=== PATIENT | male | born 1990 | race Caucasian/White ===

== ENCOUNTER 2022-09-28 21:53 | Emergency (ER) | payer OTHER ==
[2022-09-28 22:16] VITALS: BP 125/91; PULSE 85
[2022-09-28] MEDS ORDERED: Azithromycin 250 MG Tab PO ONE (22:36)
[2022-09-28] MEDS ORDERED: cefTRIAXone 500 MG, Lidocaine 1% 1 ML IM ONE ×2 (22:39)
[2022-10-02 14:47] LABS: C.TRACHOMATIS BY TMA Negative (Negative); N.GONORRHOEAE BY TMA Negative (Negative)
== END 2022-09-29 00:21 | disposition home or self-care (01) ==
LOC: DL.ED 21:53
DX: N34.2 Other urethritis (principal); Z88.0 Allergy status to penicillin
CPT/HCPCS: 81001; 87491; 87591; 96372; 99283; A9270; J0696; J3490